=== PATIENT | male | born 1960 | race Caucasian/White ===

== ENCOUNTER 2019-04-02 22:12 | Emergency (ER) | payer MEDICARE, OTHER ==
[~2019-04-02] VITALS: Ht 185.4 cm; Wt 90.7 kg
[2019-04-02 22:19] VITALS: BP 132/78
[2019-04-02] MEDS ORDERED: HYDROCODONE/APAP 10/325MG 1 EA TABLET ONE (22:45)
[2019-04-02] MEDS ORDERED: CEPHALEXIN MONOHYDRATE 500 MG CAPSULE PO ONE ×2 (22:46→23:00)
[2019-04-02] MEDS ORDERED: ONDANSETRON 4 MG TAB.RAPDIS ONE (22:46)
[2019-04-02] MEDS ORDERED: HYDROCODONE/APAP 10/325MG 1 EA TABLET PO ONE (23:00)
[2019-04-02] MEDS ORDERED: ONDANSETRON 4 MG TAB.RAPDIS SL ONE (23:00)
== END 2019-04-02 23:11 | disposition home or self-care (01) ==
LOC: ER 22:13
DX: S02.2XXA Fracture of nasal bones, initial encounter for closed fracture (principal); S00.81XA Abrasion of other part of head, initial encounter; I10 Essential (primary) hypertension; J45.909 Unspecified asthma, uncomplicated; E11.9 Type 2 diabetes mellitus without complications; V19.9XXA Pedal cyclist (driver) (passenger) injured in unspecified traffic accident, initial encounter; Y93.89 Activity, other specified; Y92.89 Other specified places as the place of occurrence of the external cause; Y99.8 Other external cause status
CPT/HCPCS: 99284; Q0162

== ENCOUNTER 2021-03-26 14:12 | Emergency (ER) | payer BC, OTHER ==
[~2021-03-26] VITALS: Ht 188 cm; Wt 91.6 kg
[2021-03-26 14:57] VITALS: BP 145/87
[2021-03-26] MEDS ORDERED: NALO4SPR NS (15:32)
== END 2021-03-26 15:44 | disposition home or self-care (01) ==
LOC: ER 14:18
DX: G89.29 Other chronic pain (principal); M25.562 Pain in left knee; M25.561 Pain in right knee; I10 Essential (primary) hypertension; I25.2 Old myocardial infarction; J45.909 Unspecified asthma, uncomplicated; E11.9 Type 2 diabetes mellitus without complications; M19.90 Unspecified osteoarthritis, unspecified site; Z79.891 Long term (current) use of opiate analgesic